=== PATIENT | female | born 1995 | race Caucasian/White ===

== ENCOUNTER 2019-01-05 19:00 | Emergency (ER) | payer OTHER ==
[2019-01-05] MEDS: ACETAMINOPHEN 500 MG TAB PO (19:26)
[2019-01-05] MEDS: SOD CHLORIDE 0.9% 1,000 ML IV (19:27)
[2019-01-05 19:29] LABS: ADD MAN DIFF? NO
[2019-01-05 19:31] LABS: WHITE BLOOD COUNT 7.4 10^3/ul (4.8-10.8)
[2019-01-05 19:31] LABS: BASOPHILS % 0.3 % (0.0-2.0); EOSINOPHILS % 0.4 % (0.0-7.0); HEMATOCRIT 29.2 % (37.0-47.0); HEMOGLOBIN 8.7 g/dl (12.0-16.0); LYMPHOCYTES # 1.7 10^3/ul (0.8-2.9); LYMPHOCYTES % 23.2 % (15.0-51.0); MEAN CORPUSCULAR HEMOGLOBIN 24.8 pg (29.0-33.0); MEAN CORPUSCULAR HGB CONC 29.8 g/dl (32.0-37.0); MEAN CORPUSCULAR VOLUME 83.2 fl (82.0-101.0); MEAN PLATELET VOLUME 10.5 fl (7.4-10.4); MONOCYTE # 0.5 10^3/ul (0.3-0.9); MONOCYTES % 6.5 % (0.0-11.0); NEUTROPHIL # 5.1 10^3/ul (1.6-7.5); NEUTROPHILS % 69.3 % (39.0-77.0); PLATELET COUNT 248 10^3/UL (140-415); RED BLOOD COUNT 3.51 10^6/ul (4.20-5.40); RED CELL DISTRIBUTION WIDTH 14.3 % (11.5-14.5)
[2019-01-05 19:39] LABS: ALANINE AMINOTRANSFERASE 22 IU/L (13-69); ALBUMIN 3.6 g/dl (3.3-4.9); ALKALINE PHOSPHATASE 109 IU/L (42-121); ANION GAP 8 (5-13); ASPARTATE AMINO TRANSFERASE 22 IU/L (15-46); BILIRUBIN,INDIRECT 0.4 mg/dl (0-1.1); BILIRUBIN,TOTAL 0.4 mg/dl (0.2-1.3); BLOOD UREA NITROGEN 5 mg/dl (7-20); CALCIUM 8.5 mg/dl (8.4-10.2); CARBON DIOXIDE 24 mmol/L (21-31); CHLORIDE 105 mmol/L (97-110); CREATININE 0.46 mg/dl (0.44-1.00); Estimated GFR > 60 mL/min (>60); GLUCOSE 83 mg/dl (70-220); POTASSIUM 3.6 mmol/L (3.5-5.1); SODIUM 137 mmol/L (135-144); TOTAL PROTEIN 7.2 g/dl (6.1-8.1)
== END 2019-01-05 20:34 | disposition home or self-care (01) ==
LOC: E/R 19:00
DX: O9A.213 Injury, poisoning and certain other consequences of external causes complicating pregnancy, third trimester (principal); S93.402A Sprain of unspecified ligament of left ankle, initial encounter; O26.891 Other specified pregnancy related conditions, first trimester; R10.9 Unspecified abdominal pain; V78.4XXA Person boarding or alighting from bus injured in noncollision transport accident, initial encounter; Z3A.33 33 weeks gestation of pregnancy
CPT/HCPCS: 73610; 76805; 80053; 85025; 96360; 99285-25

== ENCOUNTER 2019-01-05 21:09 | Outpatient (CLI) | payer OTHER | END 2019-01-05 22:25 | disposition home or self-care (01) | LOC: OBT 21:09 → L-D 21:09 → OBT 22:25 | DX: O9A.213 Injury, poisoning and certain other consequences of external causes complicating pregnancy, third trimester (principal); S93.409A Sprain of unspecified ligament of unspecified ankle, initial encounter; Z3A.35 35 weeks gestation of pregnancy; W10.8XXA Fall (on) (from) other stairs and steps, initial encounter; Y92.811 Bus as the place of occurrence of the external cause | CPT/HCPCS: Z7500 ==

== ENCOUNTER 2019-02-02 06:11 | Inpatient (IN) | payer OTHER ==
[2019-02-02] MEDS ORDERED: CARBOPROST 250 MCG INJ IM ×2 (06:30→18:00)
[2019-02-02] MEDS ORDERED: OXYTOCIN 30 UNITS/LR 500 ML IV ×2 (06:30→18:00)
[2019-02-02] MEDS ORDERED: METHYLERGONOVINE 0.2 MG INJ IM ×2 (06:30→18:00)
[2019-02-02] MEDS ORDERED: MISOPROSTOL 200 MCG TAB PR ×2 (06:30→18:00)
[2019-02-02] MEDS: LACTATED RINGER'S 1,000 ML IV ×3 (07:20→14:09)
[2019-02-02 07:25] LABS: ADD MAN DIFF? NO
[2019-02-02 07:29] LABS: WHITE BLOOD COUNT 6.4 10^3/ul (4.8-10.8)
[2019-02-02 07:29] LABS: BASOPHILS % 0.5 % (0.0-2.0); EOSINOPHILS % 0.3 % (0.0-7.0); HEMATOCRIT 30.4 % (37.0-47.0); HEMOGLOBIN 9.3 g/dl (12.0-16.0); LYMPHOCYTES # 1.4 10^3/ul (0.8-2.9); LYMPHOCYTES % 21.1 % (15.0-51.0); MEAN CORPUSCULAR HEMOGLOBIN 26.3 pg (29.0-33.0); MEAN CORPUSCULAR HGB CONC 30.6 g/dl (32.0-37.0); MEAN CORPUSCULAR VOLUME 86.1 fl (82.0-101.0); MEAN PLATELET VOLUME 10.8 fl (7.4-10.4); MONOCYTE # 0.4 10^3/ul (0.3-0.9); MONOCYTES % 6.7 % (0.0-11.0); NEUTROPHIL # 4.6 10^3/ul (1.6-7.5); NEUTROPHILS % 71.1 % (39.0-77.0); PLATELET COUNT 218 10^3/UL (140-415); RED BLOOD COUNT 3.53 10^6/ul (4.20-5.40); RED CELL DISTRIBUTION WIDTH 20.3 % (11.5-14.5)
[2019-02-02 07:43] LABS: INR 0.88; PT RATIO 0.9
[2019-02-02 07:44] LABS: PARTIAL THROMBOPLASTIN TIME 27.7 Sec (23.0-35.0)
[2019-02-02 08:18] LABS: HEPATITIS B SURFACE ANTIGEN NEGATIVE (NEGATIVE)
[2019-02-02] MEDS: CEFAZOLIN 2 GM/50 ML (PMX) 50 ML IVPB (11:40)
[2019-02-02] MEDS ORDERED: morphine SULFATE/PF (10 MG/10 ML) INJ (13:37)
[2019-02-02] MEDS ORDERED: ONDANSETRON 4 MG INJ (13:54)
[2019-02-02] MEDS ORDERED: MIDAZOLAM 1 MG/ML 2 ML INJ (14:19)
[2019-02-02] MEDS ORDERED: HYDROmorphONE 0.5 MG/0.5 ML SYG IV ×2 (14:30)
[2019-02-02] MEDS ORDERED: MIDAZOLAM 1 MG/ML 2 ML INJ IV (14:30)
[2019-02-02] MEDS ORDERED: DIPHENHYDRAMINE 50 MG INJ IV ×2 (14:30)
[2019-02-02] MEDS ORDERED: MEPERIDINE 25 MG INJ IV (14:30)
[2019-02-02] MEDS ORDERED: NALOXONE (0.4 MG/ML) INJ IV (14:30)
[2019-02-02] MEDS ORDERED: NALBUPHINE HCL (10 MG/1 ML) INJ IV (14:30)
[2019-02-02] MEDS ORDERED: ZOLPIDEM 5 MG TAB PO (14:30)
[2019-02-02] MEDS ORDERED: DIPHENHYDRAMINE 50 MG INJ (14:43)
[2019-02-02] MEDS: KETOROLAC 30 MG INJ IV (16:16)
[2019-02-02] MEDS: OXYTOCIN 30 UNITS/LR 500 ML IV ×3 (16:34→23:57)
[2019-02-02] MEDS: DEXTROSE 5%-LR 1,000 ML IV (17:35)
[2019-02-02] MEDS ORDERED: METHYLERGONOVINE 0.2 MG TAB PO (18:00)
[2019-02-02] MEDS: SENNA/DOCUSATE NA (8.6MG/50MG) TAB PO (20:26)
[2019-02-02] MEDS: ONDANSETRON 4 MG INJ IV (20:57)
[2019-02-02 21:47] LABS: RAPID PLASMA REAGIN NONREACTIVE (NR)
[2019-02-03] MEDS: DEXTROSE 5%-LR 1,000 ML IV ×3 (01:35→17:35)
[2019-02-03 07:11] LABS: ADD MAN DIFF? NO
[2019-02-03 07:14] LABS: BASOPHILS % 0.3 % (0.0-2.0); EOSINOPHILS % 0.5 % (0.0-7.0); HEMATOCRIT 29.5 % (37.0-47.0); HEMOGLOBIN 9.1 g/dl (12.0-16.0); LYMPHOCYTES % 16.1 % (15.0-51.0); MEAN CORPUSCULAR HEMOGLOBIN 26.4 pg (29.0-33.0); MEAN CORPUSCULAR HGB CONC 30.8 g/dl (32.0-37.0); MEAN CORPUSCULAR VOLUME 85.5 fl (82.0-101.0); MEAN PLATELET VOLUME 10.3 fl (7.4-10.4); MONOCYTE # 0.5 10^3/ul (0.3-0.9); MONOCYTES % 8.1 % (0.0-11.0); NEUTROPHIL # 4.7 10^3/ul (1.6-7.5); NEUTROPHILS % 74.7 % (39.0-77.0); PLATELET COUNT 170 10^3/UL (140-415); RED BLOOD COUNT 3.45 10^6/ul (4.20-5.40); RED CELL DISTRIBUTION WIDTH 20.2 % (11.5-14.5)
[2019-02-03 07:14] LABS: WHITE BLOOD COUNT 6.3 10^3/ul (4.8-10.8)
[2019-02-03] MEDS: SENNA/DOCUSATE NA (8.6MG/50MG) TAB PO ×2 (09:00→21:28)
[2019-02-03] MEDS: DIPHTH/TET/ACEL PERTUSS (ADULT) 0.5 ML VIAL IM* (11:08)
[2019-02-03] MEDS: KETOROLAC 30 MG INJ IV (13:01)
[2019-02-03] MEDS: IBUPROFEN 800 MG TAB PO ×3 (14:00→22:13)
[2019-02-03] MEDS: MAGNESIUM HYDROXIDE 30ML CUP PO (14:38)
[2019-02-03] MEDS: HYDROCODONE/APAP (5/325) TAB PO ×2 (14:38→21:28)
[2019-02-03] MEDS: LANOLIN HPA 1 PKT TOP (23:55)
[2019-02-04] MEDS: IBUPROFEN 800 MG TAB PO ×2 (05:44→22:15)
[2019-02-04] MEDS: HYDROCODONE/APAP (5/325) TAB PO ×3 (05:44→22:16)
[2019-02-04] MEDS: SENNA/DOCUSATE NA (8.6MG/50MG) TAB PO ×2 (09:45→22:15)
[2019-02-04] MEDS: MAGNESIUM HYDROXIDE 30ML CUP PO (14:38)
[2019-02-04] MEDS: HYDROCODONE/APAP (5/325) TAB NGT (15:51)
[2019-02-05] MEDS: IBUPROFEN 800 MG TAB PO (06:08)
[2019-02-05] MEDS: HYDROCODONE/APAP (5/325) TAB PO (06:09)
[2019-02-05 08:37] LABS: ADD MAN DIFF? NO
[2019-02-05 08:43] LABS: WHITE BLOOD COUNT 5.4 10^3/ul (4.8-10.8)
[2019-02-05 08:43] LABS: BASOPHILS % 0.4 % (0.0-2.0); EOSINOPHILS # 0.2 10^3/ul (0.0-0.5); EOSINOPHILS % 3.1 % (0.0-7.0); HEMATOCRIT 29.1 % (37.0-47.0); HEMOGLOBIN 8.7 g/dl (12.0-16.0); LYMPHOCYTES # 1.7 10^3/ul (0.8-2.9); LYMPHOCYTES % 31.1 % (15.0-51.0); MEAN CORPUSCULAR HEMOGLOBIN 26.4 pg (29.0-33.0); MEAN CORPUSCULAR HGB CONC 29.9 g/dl (32.0-37.0); MEAN CORPUSCULAR VOLUME 88.4 fl (82.0-101.0); MEAN PLATELET VOLUME 10.5 fl (7.4-10.4); MONOCYTE # 0.5 10^3/ul (0.3-0.9); MONOCYTES % 8.3 % (0.0-11.0); NEUTROPHIL # 3.1 10^3/ul (1.6-7.5); NEUTROPHILS % 56.9 % (39.0-77.0); PLATELET COUNT 191 10^3/UL (140-415); RED BLOOD COUNT 3.29 10^6/ul (4.20-5.40); RED CELL DISTRIBUTION WIDTH 19.9 % (11.5-14.5)
[2019-02-05] MEDS: SENNA/DOCUSATE NA (8.6MG/50MG) TAB PO (08:57)
[2019-02-05] MEDS: MEASLES,MUMPS,RUBELLA VACCINE INJ SC* (09:00)
[2019-02-05] MEDS: DIPHTH/TET/ACEL PERTUSS (ADULT) 0.5 ML VIAL IM* (09:00)
== END 2019-02-05 13:33 | disposition home or self-care (01) | DRG 788 ==
LOC: L-D 06:11 → PP1 17:32
PROVIDERS: Obstetrics & Gynecology
PROC: 10D00Z1 Extraction of Products of Conception, Low, Open Approach (ICD-10-PCS; principal; 2019-02-02 09:00)
DX: O34.211 Maternal care for low transverse scar from previous cesarean delivery (principal); Z3A.39 39 weeks gestation of pregnancy; Z37.0 Single live birth; O99.013 Anemia complicating pregnancy, third trimester
CPT/HCPCS: 85025; 85610; 85730; 86592; 86850; 86900; 86901; 87340; 99464